=== PATIENT | male | born 1970 | race Caucasian/White ===

== ENCOUNTER → 2016-11-24 14:26 | Emergency (ER) | payer SELFPAY ==
[2016-11-24 16:25] VITALS: BP 0/0
== END | disposition left against medical advice (07) ==
LOC: ED 14:26
DX: R03.0 Elevated blood-pressure reading, without diagnosis of hypertension (principal); Z53.21 Procedure and treatment not carried out due to patient leaving prior to being seen by health care provider

== ENCOUNTER 2016-12-28 19:14 | Observation (INO) | payer SELFPAY ==
[2016-12-28] MEDS ORDERED: Aspirin Low Dose CHEW TAB* 81 MG PO ONE (20:00)
[2016-12-28 20:11] LABS: Hematocrit 46 % (42-52); Hemoglobin 15.6 g/dl (14.0-18.0); Mean Corpuscular HGB Conc 34 g/dl (31-36); Mean Corpuscular Hemoglobin 32 pg (27-31); Mean Corpuscular Volume 94 fL (80-94); Mean Platelet Volume 10 um3 (7.4-10.4); Red Blood Count 4.92 10^6/ul (4.0-5.4); Red Cell Distribution Width 14 % (10.5-15); White Blood Count 12.7 10^3/ul (3.5-10.8)
[2016-12-28] MEDS ORDERED: LORazepam INJ* 2 MG/ML 1 ML VIAL IV PUSH ONE (20:14)
[2016-12-28 20:22] LABS: Albumin 4.6 g/dL (3.2-5.2); BUN/Creatinine Ratio 12.5 (8-20); Calcium 10.1 mg/dL (8.6-10.3); EGFR African American 91.6 (>60); EGFR Non-African American 71.2 (>60); Globulin 3.3 g/dL (2-4); Potassium 3.8 mmol/L (3.5-5.0); Total Bilirubin 0.6 mg/dL (0.2-1.0); Total Protein 7.9 g/dL (6.4-8.9)
[2016-12-28 20:24] LABS: Troponin I 0.01 ng/mL (<0.04)
[2016-12-28] MEDS ORDERED: NS 0.9% 1000 ML* 1,000 ML IV ONE (20:41)
[2016-12-28] MEDS ORDERED: LORazepam INJ* 2 MG/ML 1 ML VIAL ONE (20:44)
--- NOTE | 2016-12-28 21:03 | ED ---
Sandi Harrison Thomas, scribed for Violeta Middleton MD on 12/28/16 at 2021 . HPI Chest Pain - HPI Summary HPI Summary: The pt is a 46 y/o M presenting to the ED c/o diffuse CP that began today at 18: 15. The patient used crack cocaine today at 17:00. The pain has somewhat resolved since onset of pain. The patient had a syncopal episode with LOC earlier today. The pain is described as tightness. The pain was rated 7/10 at its worst and is 4/10 at time of examination. The pain is aggravated and alleviated by nothing. 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 Pt additionally c/o SOB. He says that he is stressed. He has never had chest pain before. He does not have a PCP. PMHx: HTN, DM. PSHx: none. SHx: current smoker, occasional drinking. FHx: [place] (mother) - History of Current Complaint Chief Complaint: EDChestPainROMI Time Seen by Provider: 12/28/16 19:27 Hx Obtained From: Patient Onset/Duration: Started Hours Ago - onset today at 18:15 Timing: Constant Current Severity: Moderate Pain Intensity: 4 Pain Scale Used: 0-10 Numeric Chest Pain Location: Diffuse Character: Tightness Aggravating Factor(s): Nothing Alleviating Factor(s): Nothing Associated Signs and Symptoms: Positive: Chest Pain, Shortness of Breath, Other : - Syncope with LOC, stress - Allergy/Home Medications Allergies/Adverse Reactions: Allergies Allergy/AdvReac Type Severity Reaction Status Date / Time No Known Allergies Allergy Verified 06/26/13 08:52 PMH/Surg Hx/FS Hx/Imm Hx Previously Healthy: No Endocrine/Hematology History: Reports: Hx Diabetes Cardiovascular History: Reports: Hx Hypertension Sensory History: Reports: Hx Contacts or Glasses - GLASSES Opthamlomology History: Reports: Hx Contacts or Glasses - GLASSES Neurological History: Reports: Hx Nerve Disease - OCCASSIONAL Psychiatric History: Reports: Hx Depression - NO MEDS - Surgical History Hx Anesthesia Reactions: No Infectious Disease History: No Infectious Disease History: Denies: Traveled Outside the [place] in Last 30 Days - Family History Known Family History: Positive: Other - Mother with [place] - Social History Lives: With Family - with mother Alcohol Use: Occasionally Alcohol Amount: FEW DRINKS/MONTHS Hx Substance Use: Yes Substance Use Type: Reports: Cocaine - crack cocaine Smoking Status (MU): Current Every Day Smoker Type: Cigarettes Amount Used/How Often: 1PPD 16 YRS Have You Smoked in the Last Year: Yes Review of Systems Negative: Fever Positive: Chest Pain - tightness, Positive: Shortness Of Breath Positive: Syncope - with LOC for five minutes Positive: Other - Stress All Other Systems Reviewed And Are Negative: Yes Physical Exam Triage Information Reviewed: Yes Vital Signs On Initial Exam: Initial Vitals Temp Pulse Resp BP Pulse Ox 98.3 F 92 20 172/106 100 12/28/16 19:20 12/28/16 19:20 12/28/16 19:20 12/28/16 19:20 12/28/16 19:20 Vital Signs Reviewed: Yes Appearance: Positive: Well-Appearing, No Pain Distress Skin: Positive: Warm, Skin Color Reflects Adequate Perfusion, Dry Eyes: Positive: EOMI, MOLLY ENT: Positive: Pharynx normal, TMs normal Neck: Positive: Supple, Nontender Respiratory/Lung Sounds: Positive: Clear to Auscultation, Breath Sounds Present. Negative: Rales, Rhonchi, Wheezes Cardiovascular: Positive: RRR, Other - No gallop. Negative: Murmur, Rub Abdomen Description: Positive: Nontender, Soft, Other: - No guarding. Negative : Distended, Guarding Bowel Sounds: Positive: Present Musculoskeletal: Positive: Strength/ROM Intact. Negative: Edema Left, Edema Right Neurological: Positive: Sensory/Motor Intact, Alert, Oriented to Person Place, Time, CN Intact II-III Psychiatric: Positive: Anxious Diagnostics - Vital Signs Vital Signs Temp Pulse Resp BP Pulse Ox 12/28/16 19:20 98.3 F 92 20 172/106 100 - Laboratory Lab Results: Lab Results 12/28/16 Range/Units 19:30 WBC 12.7 H (3.5-10.8) 10^3/ul RBC 4.92 (4.0-5.4) 10^6/ul Hgb 15.6 (14.0-18.0) g/dl Hct 46 (42-52) % MCV 94 (80-94) fL MCH 32 H (27-31) pg MCHC 34 (31-36) g/dl RDW 14 (10.5-15) % Plt Count 244 (150-450) 10^3/ul MPV 10 (7.4-10.4) um3 Neut % (Auto) 65.8 (38-83) % Lymph % (Auto) 26.0 (25-47) % Norman % (Auto) 7.4 (1-9) % Eos % (Auto) 0.6 (0-6) % Baso % (Auto) 0.2 (0-2) % Absolute Neuts (auto) 8.4 H (1.5-7.7) 10^3/ul Absolute Lymphs (auto) 3.3 (1.0-4.8) 10^3/ul Absolute Monos (auto) 0.9 H (0-0.8) 10^3/ul Absolute Eos (auto) 0.1 (0-0.6) 10^3/ul Absolute Basos (auto) 0 (0-0.2) 10^3/ul Absolute Nucleated RBC 0.01 10^3/ul Nucleated RBC % 0.1 Result Diagrams: 12/28/16 19:30 12/28/16 19:30 Lab Statement: Any lab studies that have been ordered have been reviewed, and results considered in the medical decision making process. - EKG 19:17 Cardiac Rate: NL EKG Interpretation: Atrial enlargement and LVH. EKG Comparison: No Significant Change - from 01/14/14 Chest Pain Course/Dx - Course Course Of Treatment: pt with multiple risk factors of family hx, htn and tob and crack use given ativan which will hopefully decrease his bp. case discussed with Dr. Guzman for admission - Diagnoses Provider Diagnoses: Chest pain Discharge - Discharge Plan Condition: Stable Disposition: ADMITTED TO [facility] The documentation as recorded by the Sandi karimi Thomas accurately reflects the service I personally performed and the decisions made by , Violeta Middleton MD.
[2016-12-28] MEDS ORDERED: Morphine INJ* 2 MG/ML 1 ML SYRINGE (TWO MG - NEW SYRINGE VERSION) IV PRN (21:20)
[2016-12-28] MEDS ORDERED: Acetaminophen TAB* 325 MG PO PRN (21:20)
[2016-12-28] MEDS ORDERED: LORazepam TAB(*) 1 MG PO PRN (21:23)
[2016-12-28] MEDS ORDERED: Nitroglycerin 2% OINT* 1 GM PAK TOPICAL ONE (21:23)
--- NOTE | 2016-12-28 21:35 | RAD ---
INDICATION: Chest pain COMPARISON: Chest x-ray dated June 26, 2011 TECHNIQUE: Single AP portable view of the chest was obtained. FINDINGS: Image quality is compromised due to the relative inferiority of a portable chest x-ray. The heart and mediastinum exhibit normal size and contour. There is questionable patchy infiltrate overlying the right lower lung. Otherwise the lungs are grossly clear. There is no evidence of a large pleural effusion. Visualized bones are normal for the patient's age. IMPRESSION: Questionable patchy infiltrate overlying the right lower lung. This is conducive to the patient's clinical symptoms further characterization can be made with a nonportable dedicated chest x-ray series.
[2016-12-28] MEDS ORDERED: Dextrose 50% VIAL 50 ml IV ONE (21:52)
--- NOTE | 2016-12-29 00:26 | HP ---
HISTORY AND PHYSICAL: DATE OF ADMISSION: 12/28/16 PRIMARY CARE PROVIDER: None. CHIEF COMPLAINT: Chest pain. HISTORY OF PRESENT ILLNESS: Mr. Winslow is a 46-year-old male with no significant past medical history who presented to the hospital an hour after snorting cocaine with chest pain. He received 1 mg of IV lorazepam and right now he is pretty sedated and evaluation and gathering information is very limited due to that. The patient currently denies chest pain and he falls back to sleep again. PAST MEDICAL HISTORY: None. MEDICATIONS: None. ALLERGIES: No known drug allergies. SOCIAL HISTORY: The patient stated that he uses cocaine noted often, but then he just drifted off to sleep again. I was unable to gather any more information about smoking history, alcohol or other drug use history. He lives with his as a surrogate, Liz Winslow. FAMILY HISTORY: The patient's mother had history of heart disease. REVIEW OF SYSTEMS: Basically unobtainable from the sedated patient. He denies any pain. PHYSICAL EXAMINATION GENERAL APPEARANCE: The patient is a very pleasant 46-year-old male who is very sedated. He does not appear in acute distress. He appears sleeping. VITAL SIGNS: Blood pressure of 172/106, heart rate of 92 and regular, respiratory rate 20, oxygen saturation 100% on 2 L of oxygen nasal cannula, temperature of 98.3. HEENT: Head atraumatic and normocephalic. Eyes, pupils are equal and reactive to light and accommodation. Oropharynx clear. Mucosa moist. NECK: Supple. No JVD. No bruits bilaterally. RESPIRATORY: Clear to auscultation bilaterally. CARDIOVASCULAR: Regular rate and rhythm, no murmur. ABDOMEN: Soft and nontender. Bowel sounds present in all 4 quadrants. EXTREMITIES: There is no edema. Pulses are +2 bilaterally. No clubbing or cyanosis. NEUROLOGIC: Speech clear. The patient is very sedated. Cranial nerves II through XII appeared to be grossly intact. Motor strength is 5/5 bilaterally. The patient falls to sleep in the middle of trying to get neurologic evaluation. Once again, his strength is symmetrical and +5 bilaterally. DIAGNOSTIC STUDIES/LAB DATA: White blood cell count of 12.7, hemoglobin of 15.6, hematocrit of 46, and platelets of 244. Sodium was 138, potassium 3.8, chloride 102, carbon dioxide 26, BUN 14, creatinine 1.12. Liver functions are unremarkable. Glucose level of 64. Portable chest x-ray read by the radiologist, impression: "Questionable patchy infiltrate overlying the right lower lung. This is conductible of the patient' s clinical syndrome Port-A-Cath catheterization can be made with non-portable dedicated chest x-rays series." The patient's EKG showed sinus rhythm with a heart rate of 95 beats per minute with PACs. No significant ST changes. ASSESSMENT AND PLAN: 1. Cocaine intoxication. The patient got chest pain after using cocaine. At this point, he is sedated after receiving 1 mg of IV lorazepam in the emergency room. The patient is going to be placed on telemetry monitored bed with followup troponins. I would treat his uncontrolled cocaine induced hypertension with nitroglycerin paste. 2. For DVT prophylaxis. The patient is at low risk and ambulation is going to be encouraged. 3. The patient's code status is full. 4. Please note that this is a very limited history and physical due to significant sedation of this patient. 5. In regards to the patient's abnormal chest x-ray, there is no history of patient having respiratory symptoms. He needs to be reevaluated in the morning in regards to that during physical evaluation. There is no indication for treating pneumonia at this point. TIME SPENT: Approximately 50 minutes were spent on the patient's admission. [id number]/[facility] #: [id number] RHONA
[2016-12-29 08:21] VITALS: BP 123/69
--- NOTE | 2016-12-29 16:33 | DS ---
DISCHARGE SUMMARY: DATE OF ADMISSION: 12/28/16 DATE OF DISCHARGE: 12/29/16 ADMITTING PROVIDER: Ju Rodas MD. ATTENDING PROVIDER: Lane Duarte MD. PRIMARY CARE PHYSICIAN: None. CHIEF COMPLAINT: Chest tightness. PRIMARY DIAGNOSIS: Coronary vasospasm in the setting of acute cocaine intoxication. SECONDARY DIAGNOSES: 1. (pt reported) hypertension. 2. Cocaine abuse. 3. Current smoker. HISTORY OF PRESENT ILLNESS AND HOSPITAL COURSE: Mr. Winslow is a 46-year-old male with past medical history of current smoker, [id number], and intermittent cocaine use. He attests to 3 times using drugs throughout his life, but then may seem to indicate more frequent use later on. The patient snorted substance at 5:30 p.m. on day of admission and reportedly lost consciousness. He was taken to the emergency room in an altered state and got IV Lorazepam. His altered mental status made initial history difficult, but apparently at one time he had complained of chest tightness and pressure along the superior aspect of the chest. He was also noted to be hypertensive, 172/106 , nitroglycerin paste was applied. He was admitted for observation status to rule out acute coronary syndrome. His troponin's were negative x3 at 0.01, 0.00 , 0.00. He had 2 EKG's which showed no ischemic changes. On the morning of admission he attested that his chest tightness was still about 4/10, although he calcified it as more of a discomfort. He attested to interest in knowing about his hepatitis C status and diabetes, as well as interest in getting Chantix medication for potential smoking cessation. He noted that he had failed nicotine patch supplementation the year prior, smoking at the same time he was using it. The patient was considered stable for discharge with outpatient followup with a new primary care provider. Chantix was not prescribed given the potential cardiovascular side effects in the setting of him presenting for ACS rule out. The patient should be considered for evaluation for outpatient stress out, though most likely his symptoms are related to cocaine- induced coronary vasospasms, in the setting of cocaine cessation it should ultimately be resolved. The patient did not wish to retrial any nicotine patch or lozenge products. The patient attested that he had never used any IV drugs, only used cocaine via smoking and snorting. His glucose levels were noted to be low at 64, and additionally low at prior emergency room visit few years prior, and did not endorse any symptoms of polydipsia or fatigue that would be concerning for diabetes mellitus, but these can be obviously checked again as an outpatient. MEDICATIONS: Patient takes none. DISCHARGE DIET: Includes heart healthy. DISCHARGE DISPOSITION: Home. Follow-up: Patient needs to establish care with a PCP. Consideration for outpatient stress test. TIME SPENT ON DISCHARGE: 35 minutes. [id number]/[facility] #: [id number] RHONA
== END 2016-12-29 14:14 | disposition home or self-care (01) ==
LOC: ED 19:14 → MEDTELE 21:20
PROVIDERS: ADMIT Internal Medicine; ATTEND Internal Medicine
DX: I20.1 Angina pectoris with documented spasm (principal); I10 Essential (primary) hypertension; F14.129 Cocaine abuse with intoxication, unspecified; R07.9 Chest pain, unspecified; R06.02 Shortness of breath; I49.1 Atrial premature depolarization; F17.210 Nicotine dependence, cigarettes, uncomplicated
CPT/HCPCS: 36415; 71010; 80053; 83605; 84484; 85025; 93005; 96361; 96374; 99284; 99406; A9270-GY; G0378; J2060

== ENCOUNTER → 2018-06-11 17:39 | Emergency (ER) | payer OTHER ==
[~2018-06-11 17:39] MED LIST: Cyclobenzaprine TAB* 10 MG PO ONE; Iodixanol* (CONTRAST) 320 MG/ML 100 ML SDV IV ONE
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
[2018-06-11 18:18] LABS: ABS Basophils 0.1 10^3/ul (0-0.2); ABS Eosinophils 0.2 10^3/ul (0-0.6); ABS Lymphocytes 2.3 10^3/ul (1.0-4.8); ABS Monocytes 0.9 10^3/ul (0-0.8); ABS Neutrophils 7.1 10^3/ul (1.5-7.7); ABS Nucleated RBC 0 10^3/ul; Eosinophil % 1.7 %; Hematocrit 43 % (42-52); Hemoglobin 14.9 g/dl (14.0-18.0); Lymphocyte % 22.1 %; Mean Corpuscular HGB Conc 34 g/dl (31-36); Mean Corpuscular Hemoglobin 32 pg (27-31); Mean Corpuscular Volume 93 fL (80-94); Mean Platelet Volume 9.6 fL (7.4-10.4); Nucleated Red Blood Cells % 0; Platelet Count 190 10^3/ul (150-450); Red Blood Count 4.65 10^6/ul (4.00-5.40); Red Cell Distribution Width 13 % (10.5-15); White Blood Count 10.6 10^3/ul (3.5-10.8)
[2018-06-11 18:52] LABS: Albumin 4.3 g/dL (3.2-5.2); Albumin/Globulin Ratio 1.4 (1-3); BUN/Creatinine Ratio 15.6 (8-20); Calcium 9.4 mg/dL (8.6-10.3); EGFR Non-African American 84.3 (>60); Globulin 3.1 g/dL (2-4); Potassium 4.1 mmol/L (3.5-5.0); Total Bilirubin 0.3 mg/dL (0.2-1.0); Total Protein 7.4 g/dL (6.4-8.9)
[2018-06-11 20:43] VITALS: BP 154/103
== END | disposition home or self-care (01) ==
LOC: ED 17:39
DX: S09.90XA Unspecified injury of head, initial encounter (principal); M54.2 Cervicalgia; M79.605 Pain in left leg; M54.9 Dorsalgia, unspecified; I10 Essential (primary) hypertension; R10.84 Generalized abdominal pain; F17.210 Nicotine dependence, cigarettes, uncomplicated; V49.9XXA Car occupant (driver) (passenger) injured in unspecified traffic accident, initial encounter; Y92.9 Unspecified place or not applicable
CPT/HCPCS: 36415; 70450; 71260; 72125; 74177; 80053; 83605; 85025; 99282; A9270-GY; Q9967